=== PATIENT | male | born 1950 | race Caucasian/White ===

== ENCOUNTER 2020-03-13 22:31 | Emergency (ER) | payer OTHER ==
--- NOTE | 2020-03-13 22:36 | ED Physician Documentation ---
History of Present Illness - Stated complaint Stated Complaint: SOA - History obtained from History obtained from: Patient - Additonal information Additional information: The patient is a 69-year-old male who presents with wheezing and shortness of breath that started earlier today he feels like he is much improved currently. He actually has no complaints right now. But earlier today reports she was short of breath without chest pain or syncope or lower extremity swelling he does smoke cigarettes daily as well as have several alcoholic drinks daily. He denies any fevers or headache or neck pain.Patient denies any history of RI PE D VT or stroke.Denies any exogenous estrogen use or periods of stasis or personal history of hypercoagulability or trauma. Review of Systems Constitutional: reports: Reviewed and negative Eyes: reports: Reviewed and negative Ears: reports: Reviewed and negative Nose: reports: Reviewed and negative Throat: reports: Reviewed and negative Cardiac: reports: Reviewed and negative Respiratory: reports: Dyspnea, Wheezing GI: reports: Reviewed and negative : reports: Reviewed and negative Skin: reports: Reviewed and negative Musculoskeletal: reports: Reviewed and negative Neurologic: reports: Reviewed and negative Psychiatric: reports: Reviewed and negative Endocrine: reports: Reviewed and negative Immunocompromised: reports: Reviewed and negative PD PAST MEDICAL HISTORY - Present Medications Home Medications: Ambulatory Orders Medication Instructions Recorded Confirmed Albuterol Sulfate [Albuterol 18 gm IH Q4HR PRN #1 [email or web address] 03/13/20 Sulfate Hfa] predniSONE [Prednisone] 50 mg PO DAILY #6 tablet 03/13/20 - Allergies Allergies/Adverse Reactions: Allergies Allergy/AdvReac Type Severity Reaction Status Date / Time Penicillins Allergy Rash Verified 03/13/20 22:40 PD ED PE NORMAL - Vitals Vital signs reviewed: Yes - General General: Alert and oriented X 3, No acute distress, Well developed/nourished - HEENT HEENT: Atraumatic, PERRL - Neck Neck: Supple, no meningeal sign - Cardiac Cardiac: RRR, No murmur, Strong equal pulses - Respiratory Respiratory: No respiratory distress, Other (Very minimal wheezing that are end expiratory. No crackles trach is midline no use of accessory muscles no tach ypnea no respiratory distress breath sounds are present in bilateral lung wills.) - Abdomen Abdomen: Normal bowel sounds, Soft, Non tender, Non distended, No organomegaly, Other (no midline abd pulsatile mass) - Male Male : Deferred - Rectal Rectal: Deferred - Back Back: No CVA TTP, No spinal TTP - Derm Derm: Normal color, Warm and dry, No rash - Extremities Extremities: No deformity, No tenderness to palpate, Normal ROM s pain, No edema, No calf tenderness / cord - Neuro Neuro: Alert and oriented X 3, stripping cutter and winder 2-12 intact, No motor deficit, No sensory deficit, Normal speech - Psych Psych: Normal mood, Normal affect Results - Vitals Vitals: Vital Signs - 24 hr 03/13/20 03/13/20 03/13/20 22:41 22:44 23:07 Temperature 37.1 C Heart Rate 107 H 104 H 99 Respiratory 18 18 16 Rate Blood Pressure 151/93 H 151/93 H O2 Saturation 94 95 03/13/20 23:32 Temperature Heart Rate 93 Respiratory 16 Rate Blood Pressure 132/89 H O2 Saturation 96 Oxygen O2 Source Room air - EKG (time done) 22:42 Rate: Other (no stemi) - Labs Labs: Laboratory Tests 03/13/20 03/13/20 03/13/20 22:49 22:49 22:49 WBC 7.3 RBC 4.06 L Hgb 13.0 L Hct 39.6 L MCV 97.5 H MCH 32.0 H MCHC 32.8 RDW 13.3 Plt Count 261 MPV 8.8 Neut # (Auto) 4.0 Lymph # (Auto) 1.7 Conway # (Auto) 0.9 Eos # (Auto) 0.6 Baso # (Auto) 0.1 Absolute Nucleated RBC 0.00 Nucleated RBC % 0.0 PT 11.1 INR 1.0 APTT 29.9 D-Dimer 230.0 Sodium 134 L Potassium 4.0 Chloride 102 Carbon Dioxide 22 Anion Gap 10.0 BUN 24 H Creatinine 0.8 Estimated GFR (MDRD) 96 Glucose 101 H Calcium 9.6 Total Bilirubin 0.4 AST 27 ALT 23 Alkaline Phosphatase 51 Total Creatine Kinase 284 H Troponin I High Sens B-Natriuretic Peptide Total Protein 7.4 Albumin 4.7 Globulin 2.7 Albumin/Globulin Ratio 1.7 Lipase 34 Ethyl Alcohol 21.6 03/13/20 03/13/20 22:49 22:49 WBC RBC Hgb Hct MCV MCH MCHC RDW Plt Count MPV Neut # (Auto) Lymph # (Auto) Conway # (Auto) Eos # (Auto) Baso # (Auto) Absolute Nucleated RBC Nucleated RBC % PT INR APTT D-Dimer Sodium Potassium Chloride Carbon Dioxide Anion Gap BUN Creatinine Estimated GFR (MDRD) Glucose Calcium Total Bilirubin AST ALT Alkaline Phosphatase Total Creatine Kinase Troponin I High Sens 4.3 B-Natriuretic Peptide 17 Total Protein Albumin Globulin Albumin/Globulin Ratio Lipase Ethyl Alcohol PD MEDICAL DECISION MAKING - ED course Complexity details: reviewed results, re-evaluated patient (23:30 wheezing improved after albuterol treatment. ), considered differential (copd, acs, pna, bronchitis, pe.), d/w patient ED course: 69-year-old male who presented with wheezing and shortness of breath his troponins negative EKG shows no STEMI chest x-ray is negative his d-dimer is 230 which is right at the cutoff for normal. He has no lower extremity swelling no hemoptysis no exogenous estrogen use no personal family history of hypercoagulability no recent surgeries or stasis. I did consider getting a CTA after discussion with the patient he will follow-up with his primary care provider tomorrow for recheck. Patient did have some mild wheezing on exam it was improved with 1 treatment of albuterol is given a prescription for albuterol as well as prednisone he received his first dose of prednisone in the emergency department his physician is Dr. Carolynn Javier which she will follow-up with tomorrow. He also was screened for COVID I instructed the patient to call the hospital back daily until he gets the results of his COVID tests and he should wear a mask as well. Departure - Departure Disposition: 01 Home, Self Care Clinical Impression: SOB (shortness of breath) Reactive airway disease Qualifiers: Asthma severity: mild Asthma persistence: intermittent Asthma complication type: with acute exacerbation Qualified Code(s): J45.21 - Mild intermittent asthma with (acute) exacerbation Condition: Stable Instructions: ED Reactive Airway Disease Follow-Up: Carolynn Javier MD [Primary Care Provider] - Tomorrow Prescriptions: Albuterol Sulfate [Albuterol Sulfate Hfa] 18 gm IH Q4HR PRN #1 [email or web address] PRN Reason: Wheezing predniSONE [Prednisone] 50 mg PO DAILY #6 tablet Comments: take prednisone as directed. please call the hospital daily until you get your covid test result. use your inhaler as needed for wheezing. call dr. carolynn javier tomorrow to schedule a follow up. return to the emergency department with any concerns.
[2020-03-13] MEDS ORDERED: ALBUTEROL 1 PUFF INH STA (22:45)
[2020-03-13 22:55] LABS: BASOPHILS # (AUTO) 0.1 10^3/uL (0.0-0.1); BASOPHILS % (AUTO) 0.8 %; EOSINOPHILS # (AUTO) 0.6 10^3/uL (0.0-0.7); EOSINOPHILS % (AUTO) 7.5 %; LYMPHOCYTES # (AUTO) 1.7 10^3/uL (1.5-3.5); LYMPHOCYTES % (AUTO) 23.5 %; MEAN CORPUSCULAR HGB CONC 32.8 g/dL (32.0-36.0); MEAN CORPUSCULAR VOLUME 97.5 fL (80.0-94.0); MEAN PLATELET VOLUME 8.8 fL (7.4-11.4); MONOCYTES # (AUTO) 0.9 10^3/uL (0.0-1.0); MONOCYTES % (AUTO) 12.8 %; NEUTROPHILS % (AUTO) 55.1 %; PLT - PLATELET COUNT 261 10^3/uL (130-450); RED BLOOD COUNT 4.06 10^6/uL (4.70-6.10); RED CELL DISTRIBUTION WIDTH 13.3 % (12.0-15.0); WHITE BLOOD COUNT 7.3 x10^3/uL (4.8-10.8)
[2020-03-13 23:01] LABS: PT - PROTHROMBIN TIME 11.1 secs (9.9-12.6)
[2020-03-13 23:08] LABS: ALBUMIN 4.7 g/dL (3.2-5.5); ALBUMIN/GLOBULIN RATIO 1.7 (1.0-2.2); BILIRUBIN,TOTAL 0.4 mg/dL (0.2-1.0); CALCIUM 9.6 mg/dL (8.5-10.3); CREATININE 0.8 mg/dL (0.6-1.2); TOTAL PROTEIN 7.4 g/dL (6.7-8.2)
[2020-03-13 23:14] LABS: PARTIAL THROMBOPLASTIN TIME 29.9 secs (24.9-33.3)
[2020-03-13] MEDS ORDERED: predniSONE 20 MG TABLET PO STA (23:25)
[2020-03-13 23:33] VITALS: BP 132/89
--- NOTE | 2020-03-14 07:35 | XRAY Report ---
PROCEDURE: Chest 1 View X-Ray INDICATIONS: sob TECHNIQUE: One view of the chest was acquired. COMPARISON: None FINDINGS: Surgical changes and devices: None. Lungs and pleura: No pleural effusions or pneumothorax. Lungs are clear. Mediastinum: Mediastinal contours appear normal. Heart size is minimally prominent. Bones and chest wall: No suspicious bony lesions. Overlying soft tissues appear unremarkable. IMPRESSION: No acute pulmonary process. No visualized acute fracture or dislocation. However, occult injury cannot be excluded. Recommend dong rt interval imaging follow-up in 7-10 days as clinically indicated for additional evaluation. Reviewed by: Bernarda Fernando MD on 03/14/2020 7:33 AM PDT Approved by: Bernarda Fernando MD on 03/14/2020 7:33 AM PDT Station ID: [id number]
== END 2020-03-13 23:55 | disposition home or self-care (01) ==
LOC: ED 22:31
DX: J45.21 Mild intermittent asthma with (acute) exacerbation (principal); R06.02 Shortness of breath; R00.0 Tachycardia, unspecified; I25.2 Old myocardial infarction; F17.210 Nicotine dependence, cigarettes, uncomplicated
CPT/HCPCS: 36415; 71045; 80053; 80320; 82550; 83690; 83880; 84484; 85025; 85379; 85610; 85730; 87635; 93005; 94640; 94664; 99284; 99285; J7512

== ENCOUNTER 2020-04-15 13:25 | Outpatient (CLI) | payer OTHER | END 2020-04-15 13:26 | disposition home or self-care (01) | LOC: RT 13:25 | PROVIDERS: ATTEND Nurse Practitioner Family | DX: J98.01 Acute bronchospasm (principal) | CPT/HCPCS: 94010 ==

== ENCOUNTER 2020-05-17 11:51 | Outpatient (CLI) | payer OTHER ==
--- NOTE | 2020-05-17 16:44 | XRAY Report ---
PROCEDURE: Hips 2V BILAT INDICATIONS: PAIN IN RIGHT HIP TECHNIQUE: 2 views of the hip were acquired. COMPARISON: None FINDINGS: Bones: No fractures or dislocations. No suspicious bony lesions. The visualized pelvic ring appear s intact. Minimal early degenerative changes within the hips bilaterally. Soft tissues: No suspicious soft tissue calcifications or masses. IMPRESSION: No visualized acute fracture or dislocation. However, occult injury cannot be excluded. Recommend dong rt interval imaging follow-up in 7-10 days as clinically indicated for additional evaluation. Reviewed by: Bernarda Fernando MD on 05/17/2020 4:43 PM PST Approved by: Bernarda Fernando MD on 05/17/2020 4:43 PM PST Station ID: [id number]
== END 2020-05-17 11:52 | disposition home or self-care (01) ==
LOC: DI 11:51
PROVIDERS: ATTEND Nurse Practitioner Family
DX: M25.551 Pain in right hip (principal)
CPT/HCPCS: 73521

== ENCOUNTER 2020-05-27 16:13 | Outpatient (CLI) | payer OTHER | END 2020-05-27 16:14 | disposition EMS.NT | LOC: EMS 16:13 | PROVIDERS: ATTEND Surgery | DX: R06.00 Dyspnea, unspecified (principal) ==